=== PATIENT | female | born 1940 | race Caucasian/White ===

== ENCOUNTER 2021-11-16 08:24 | Emergency (ER) | payer MEDICARE ==
[~2021-11-16] VITALS: Ht 160 cm; Wt 75.0 kg
[2021-11-16] VITALS (15 sets, daily range): BP systolic 99–133; BP diastolic 45–87
[2021-11-16 09:14] LABS: HEMATOCRIT 38.9 % (37.0-47.0); HEMOGLOBIN 12.6 g/dl (12.0-16.0); IMMATURE GRANULOCYTES 0.2 % (0.0-5.0); MEAN CELL VOLUME 93.3 fL CALC (80.0-100.0); MEAN CORPUSCULAR HGB 30.2 pG CALC (26.0-32.0); MEAN CORPUSCULAR HGB CONC 32.4 g/dL CAL (32.0-36.0); NEUT# 5.53 thou/uL (2.00-7.15); RED BLOOD COUNT 4.17 mill/uL (4.20-5.60); RED CELL DISTRI WIDTH 15.7 % (11.5-15.5)
[2021-11-16 09:29] LABS: ALBUMIN 4.2 g/dL (3.2-5.0); ALKALINE PHOSPHATASE 118 u/l (38-126); ANION GAP 14 (6-22 (CALC)); BILIRUBIN, TOTAL 0.2 mg/dL (0.0-1.4); BUN 17 mg/dL (8-23); BUN/CREATININE RATIO 17 (12-20 (CALC)); CARBON DIOXIDE 25 mmol/l (22-30); CHLORIDE 104 mmol/l (95-108); GFR FOR AFR.AMER. > 60 ML/MIN (>=60 (CALC)); GFR OTHER RACES 53 ML/MIN (>=60 (CALC)); POTASSIUM 4.3 mmol/l (3.5-5.1); SGOT/AST 27 u/l (9-36); SODIUM 138 mmol/l (137-146)
[2021-11-16 09:42] LABS: MYOGLOBIN 29 ng/mL (0 - 62)
[2021-11-16] MEDS ORDERED: VITAMIN B-12500 MCG PO (10:35)
[2021-11-16] MEDS ORDERED: ELIQUIS2.5 MG (10:36)
[2021-11-16] MEDS ORDERED: TIZANIDINE2 MG PO (10:37)
[2021-11-16] MEDS ORDERED: METOPROL TAR25 MG PO (10:37)
[2021-11-16] MEDS ORDERED: OMEPRA/BICAR1 CAP PO (10:38)
[2021-11-16] MEDS ORDERED: LIPITOR10 M1 PO (10:38)
[2021-11-16] MEDS ORDERED: FAMOTIDINE20 M1 PO (10:39)
== END 2021-11-16 12:10 | disposition short-term general hospital (02) ==
LOC: ED 08:24
PROVIDERS: Emergency Medicine
DX: R00.1 Bradycardia, unspecified (principal); I48.91 Unspecified atrial fibrillation; Z20.822 Contact with and (suspected) exposure to COVID-19